=== PATIENT | male | born 2000 | race Native Hawaiian/Other Pacific Islander ===

== ENCOUNTER 2019-08-13 07:20 | Emergency (ER) | payer OTHER ==
[~2019-08-13] VITALS: Ht 167.6 cm; Wt 61.2 kg
[2019-08-13 07:31] VITALS: BP 113/64; TEMP 97.8
[2019-08-13] MEDS ORDERED: LAMICTAL100 MG PO (07:39)
[2019-08-13] MEDS ORDERED: FLUOXETINE40 MG PO (07:39)
== END 2019-08-13 08:15 | disposition home or self-care (01) ==
LOC: ED 07:20
DX: L08.9 Local infection of the skin and subcutaneous tissue, unspecified (principal); L73.9 Follicular disorder, unspecified
CPT/HCPCS: 99282